=== PATIENT | male | born 1975 | race American Indian/Alaskan Native ===

== ENCOUNTER 2021-01-12 05:37 | Emergency (ER) | payer SELFPAY ==
[2021-01-12] MEDS ORDERED: amLODIPine 5 MG TAB PO ONE (08:47)
[2021-01-12] MEDS ORDERED: BUTALB/ACETAMINOPHEN/CAFFEINE TAB PO ONE (08:47)
--- NOTE | 2021-01-12 08:50 | Emergency Department Report ---
ED General Adult HPI - General Chief complaint: High BP Stated complaint: HEADACHE/POSS HIGH BP Time Seen by Provider: 01/12/21 08:47 Source: patient Mode of arrival: Ambulatory Limitations: No Limitations - History of Present Illness Initial comments: The patient presents to the emergency department the chief complaint of elevated blood pressure and a headache. Patient states that he was in intense conversation with his last night that persisted throughout the morning with progressively worsening of a headache. Patient states that he did not began to have episodes of vomiting and was sweating profusely. Patient describes a headache as throbbing in nature and states is not the worst headache of his life. Patient has had headaches like this with elevated blood pressure in the past. Patient denies chest pain or shortness of breath or abdominal pain. -: Sudden Location: head Radiation: non-radiation Severity scale (0 -10): 4 Quality: other (Throbbing) Consistency: constant Improves with: none Worsens with: none Associated Symptoms: chest pain, nausea/vomiting Treatments Prior to Arrival: other ([id number] headache medication) - Related Data Previous Rx's Medication Instructions Recorded Last Taken Type Butalb/Acetamin/Caff 50-325-40 1 tab PO Q6HR PRN #24 tab 01/12/21 Unknown Rx [Fioricet] amLODIPine [Norvasc] 10 mg PO DAILY #30 tab 01/12/21 Unknown Rx hydroCHLOROthiazide [HCTZ] 25 mg PO QDAY #30 tablet 01/12/21 Unknown Rx Allergies Allergy/AdvReac Type Severity Reaction Status Date / Time Fish Containing Products Allergy Hives Verified 01/12/21 05:42 ED Review of Systems ROS: Stated complaint: HEADACHE/POSS HIGH BP Other details as noted in HPI Comment: All other systems reviewed and negative Constitutional: denies: chills, fever Eyes: denies: eye pain, eye discharge, vision change ENT: denies: ear pain, throat pain Respiratory: denies: cough, shortness of breath, wheezing Cardiovascular: denies: chest pain, palpitations Endocrine: no symptoms reported Gastrointestinal: denies: abdominal pain, nausea, diarrhea Genitourinary: denies: urgency, dysuria Musculoskeletal: denies: back pain, joint swelling, arthralgia Skin: denies: rash, lesions Neurological: headache. denies: weakness, paresthesias Psychiatric: denies: anxiety, depression Hematological/Lymphatic: denies: easy bleeding, easy bruising ED Past Medical Hx - Past Medical History Previous Medical History?: Yes Hx Hypertension: Yes - Surgical History Past Surgical History?: No - Medications Home Medications: Home Medications Medication Instructions Recorded Confirmed Last Taken Type Butalb/Acetamin/Caff 50-325-40 1 tab PO Q6HR PRN #24 tab 01/12/21 Unknown Rx [Fioricet] amLODIPine [Norvasc] 10 mg PO DAILY #30 tab 01/12/21 Unknown Rx hydroCHLOROthiazide [HCTZ] 25 mg PO QDAY #30 tablet 01/12/21 Unknown Rx ED Physical Exam - General Limitations: No Limitations General appearance: alert, in no apparent distress - Head Head exam: Present: atraumatic, normocephalic - Eye Eye exam: Present: normal appearance, PERRL, EOMI - ENT ENT exam: Present: mucous membranes moist - Neck Neck exam: Present: normal inspection - Respiratory Respiratory exam: Present: normal lung sounds bilaterally. Absent: respiratory distress - Cardiovascular Cardiovascular Exam: Present: regular rate, normal rhythm. Absent: systolic murmur, diastolic murmur, rubs, gallop - GI/Abdominal GI/Abdominal exam: Present: soft, normal bowel sounds. Absent: distended, t enderness - Rectal Rectal exam: Present: deferred - Extremities Exam Extremities exam: Present: normal inspection - Back Exam Back exam: Present: normal inspection - Neurological Exam Neurological exam: Present: alert, oriented X3, CN II-XII intact. Absent: motor sensory deficit - Psychiatric Psychiatric exam: Present: normal affect, normal mood - Skin Skin exam: Present: warm, dry, intact, normal color. Absent: rash ED Course Vital Signs 01/12/21 01/12/21 01/12/21 05:41 08:20 08:23 Temperature 98.2 F Pulse Rate 86 75 Respiratory 17 12 Rate Blood Pressure 179/102 O2 Sat by Pulse 96 99 Oximetry 01/12/21 01/12/21 01/12/21 08:24 08:27 08:29 Temperature Pulse Rate 76 76 79 Respiratory 12 8 L 25 H Rate Blood Pressure 163/103 155/101 155/101 O2 Sat by Pulse 96 98 99 Oximetry 01/12/21 01/12/21 01/12/21 08:31 08:33 08:35 Temperature Pulse Rate 76 74 72 Respiratory 22 13 14 Rate Blood Pressure 155/101 155/101 155/101 O2 Sat by Pulse 99 100 100 Oximetry 01/12/21 01/12/21 01/12/21 08:37 08:39 08:41 Temperature Pulse Rate 81 80 77 Respiratory 21 21 14 Rate Blood Pressure 155/101 155/101 155/101 O2 Sat by Pulse 98 98 99 Oximetry 01/12/21 01/12/21 01/12/21 08:43 08:45 08:47 Temperature Pulse Rate 73 75 76 Respiratory 13 19 20 Rate Blood Pressure 155/101 155/101 155/101 O2 Sat by Pulse 98 98 97 Oximetry 01/12/21 01/12/21 01/12/21 08:49 08:50 08:51 Temperature Pulse Rate 71 70 Respiratory 19 18 20 Rate Blood Pressure 155/101 155/101 O2 Sat by Pulse 98 99 Oximetry 01/12/21 01/12/21 01/12/21 08:53 08:54 08:57 Temperature Pulse Rate 70 69 68 Respiratory 18 21 18 Rate Blood Pressure 155/101 155/101 147/91 O2 Sat by Pulse 99 99 98 Oximetry 01/12/21 01/12/21 01/12/21 08:59 09:01 09:03 Temperature Pulse Rate 82 70 75 Respiratory 18 19 11 L Rate Blood Pressure 147/91 147/91 147/91 O2 Sat by Pulse 99 99 97 Oximetry 01/12/21 01/12/21 01/12/21 09:04 09:19 09:21 Temperature Pulse Rate 76 Respiratory 22 Rate Blood Pressure 147/91 147/91 147/91 O2 Sat by Pulse 96 99 99 Oximetry 01/12/21 01/12/21 01/12/21 09:23 09:25 09:27 Temperature Pulse Rate Respiratory Rate Blood Pressure 147/91 169/113 169/113 O2 Sat by Pulse 100 96 100 Oximetry 01/12/21 01/12/21 01/12/21 09:29 09:31 09:33 Temperature Pulse Rate Respiratory Rate Blood Pressure 169/113 169/113 169/113 O2 Sat by Pulse 100 99 98 Oximetry ED Medical Decision Making - Lab Data Result diagrams: 01/12/21 09:04 01/12/21 09:04 Lab Results 01/12/21 01/12/21 Range/Units 09:04 09:04 WBC 6.7 (4.5-11.0) K/mm3 RBC 4.34 (3.65-5.03) M/mm3 Hgb 14.4 (11.8-15.2) gm/dl Hct 41.1 (35.5-45.6) % MCV 95 H (84-94) fl MCH 33 H (28-32) pg MCHC 35 H (32-34) % RDW 13.2 (13.2-15.2) % Plt Count 267 (140-440) K/mm3 Lymph % (Auto) 19.2 (13.4-35.0) % [place] % (Auto) 7.9 H (0.0-7.3) % Eos % (Auto) 0.1 (0.0-4.3) % Baso % (Auto) 0.6 (0.0-1.8) % Lymph # (Auto) 1.3 (1.2-5.4) K/mm3 [place] # (Auto) 0.5 (0.0-0.8) K/mm3 Eos # (Auto) 0.0 (0.0-0.4) K/mm3 Baso # (Auto) 0.0 (0.0-0.1) K/mm3 Seg Neutrophils % 72.2 H (40.0-70.0) % Seg Neutrophils # 4.8 (1.8-7.7) K/mm3 Sodium 137 (137-145) mmol/L Potassium 3.9 (3.6-5.0) mmol/L Chloride 100.2 (98-107) mmol/L Carbon Dioxide 26 (22-30) mmol/L Anion Gap 15 mmol/L BUN 9 (9-20) mg/dL Creatinine 0.8 (0.8-1.3) mg/dL Estimated GFR > 60 ml/min BUN/Creatinine Ratio 11 % Glucose 97 (75-100) mg/dL Calcium 9.3 (8.4-10.2) mg/dL - Radiology Data Radiology results: report reviewed - Medical Decision Making Discussed results with patient Critical care attestation.: If time is entered above; I have spent that time in minutes in the direct care of this critically ill patient, excluding procedure time. ED Disposition Clinical Impression: Headache, Hypertension Disposition: TO HOME OR SELFCARE Is pt being admited?: No Does the pt Need Aspirin: No Condition: Stable Instructions: Hypertension (ED), Hypertension, Adult, General Headache Without Cause Prescriptions: amLODIPine [Norvasc] 10 mg PO DAILY #30 tab Butalb/Acetamin/Caff 50-325-40 [Fioricet] 1 tab PO Q6HR PRN #24 tab PRN Reason: Headache hydroCHLOROthiazide [HCTZ] 25 mg PO QDAY #30 tablet Referrals: PRIMARY MD SIMA [Primary Care Provider] - 3-5 Days NAVYA MARTINEZ MD [Staff Physician] - 3-5 Days Time of Disposition: 10:11
--- NOTE | 2021-01-12 09:32 | Cat Scan Report ---
CT HEAD WITHOUT CONTRAST INDICATION / CLINICAL INFORMATION: [place]O/ Hypertensive urgency. TECHNIQUE: All CT scans at this location are performed using CT dose reduction for ALARA by means of automated exposure control. COMPARISON: None available. FINDINGS: HEMORRHAGE: None. EXTRA-AXIAL SPACES: Normal in size and morphology for the patient's age. VENTRICULAR SYSTEM: Normal in size and morphology for the patient's age. CEREBRAL PARENCHYMA: No significant abnormality. No acute territorial infarct. MIDLINE SHIFT / HERNIATION: None. CEREBELLUM / BRAINSTEM: No significant abnormality. ORBITS: Normal as visualized. SOFT TISSUES: No significant abnormality. SKULL: No significant abnormality. PARANASAL SINUSES / MASTOID AIR CELLS: Mild fluid in the left sphenoid sinus. ADDITIONAL FINDINGS: None. IMPRESSION: 1. No acute intracranial abnormality. Signer Name: Home Hernández MD Signed: 01/12/2021 9:28 AM Workstation Name: [email or web address]
[2021-01-12 09:37] LABS: Basophils % (Auto) 0.6 % (0.0-1.8); Eosinophils % (Auto) 0.1 % (0.0-4.3); Hematocrit 41.1 % (35.5-45.6); Hemoglobin 14.4 gm/dl (11.8-15.2); Lymphocytes # (Auto) 1.3 K/mm3 (1.2-5.4); Lymphocytes % (Auto) 19.2 % (13.4-35.0); Mean Corpuscular HGB Conc 35 % (32-34); Mean Corpuscular Volume 95 fl (84-94); Monocytes # (Auto) 0.5 K/mm3 (0.0-0.8); Monocytes % (Auto) 7.9 % (0.0-7.3); Platelet Count 267 K/mm3 (140-440); Red Blood Count 4.34 M/mm3 (3.65-5.03); Red Cell Distribution Width 13.2 % (13.2-15.2)
[2021-01-12 09:50] LABS: BUN/Creatinine Ratio 11; Blood Urea Nitrogen 9 mg/dL (9-20); Calcium 9.3 mg/dL (8.4-10.2); Hemolysis Index 49
[2021-01-12 10:58] VITALS: BP 158/92
== END 2021-01-12 11:05 | disposition home or self-care (01) ==
LOC: ED 05:37
DX: R51.9 Headache, unspecified (principal); I10 Essential (primary) hypertension; Z91.013 Allergy to seafood; Z79.899 Other long term (current) drug therapy
CPT/HCPCS: 36415; 70450; 80048; 85025; 99284

== ENCOUNTER 2021-09-17 13:51 | Emergency (ER) | payer SELFPAY | END 2021-09-17 16:00 | disposition left against medical advice (07) | LOC: ED 13:51 | DX: R11.10 Vomiting, unspecified (principal); Z53.21 Procedure and treatment not carried out due to patient leaving prior to being seen by health care provider ==